=== PATIENT | male | born 1975 | race Caucasian/White ===

== ENCOUNTER 2016-07-25 21:32 | Observation (INO) | payer OTHER ==
[~2016-07-25] VITALS: Ht 177.8 cm; Wt 76.6 kg
--- NOTE | 2016-07-25 21:53 | EMERGENCY ROOM VISIT NOTE ---
History Report prepared by Nohemi: Mitchel Robbins Under the Supervision of: Dr. Olivia Hanna D.O. First contact with patient: 21:42 Chief Complaint: ALCOHOL OVERDOSE Stated Complaint: ETOH Nursing Triage Summary: arrived via amb with als. pt was home d drining and prior to that had been drinking at his residence. History of Present Illness This HPI is limited due to the alcohol intoxication of the patient. The patient is a 41 year old male who presents to the Emergency Room via EMS for alcohol intoxication. Per Hospital Nursing Staff the patient was drinking at [employer]. The accounts receivable manager tried to take him home but the patient was not able to tell him where he lived. The accounts receivable manager then took the patient back to the [employer] and called for an ambulance. According to EMS, The patient commonly drinks grain alcohol. Source of History: nursing staff History Limited By: intoxication (EtOH) Review of Systems HPI is limited due to the Alcohol Intoxication of the patient. Past Medical & Surgical Medical Problems: (1) Alcohol intoxication Unable to acquire due to intoxication. Family History Unable to acquire due to intoxication. Social History Smoking Status: Never Smoker Alcohol Use: heavy Housing Status: lives with family Occupation Status: unemployed Current/Historical Medications Unable to Obtain Active Prescriptions or Reported Meds Allergies Coded Allergies: No Known Allergies (Unverified , 07/25/16) Physical Exam Vital Signs Date Time Temp Pulse Resp B/P Pulse Ox O2 Delivery O2 Flow Rate FiO2 07/25/16 23:41 86 18 109/52 96 Room Air 07/25/16 21:41 36.6 93 18 113/82 98 Room Air 07/25/16 21:41 98 Room Air Physical Exam General: Patient smells of grain alcohol on exam. Unable to answer questions. HEENT: Head - normocephalic and atraumatic Pupils are equal, round, and reactive to light. Pupils measured 2 mm bilaterally. Extraocular eye muscles are intact, and sclera are anicteric. Nose - moist nasal mucosa without discharge. Mouth - moist buccal mucosa. Oropharynx is nonerythematous and there is no tonsillar exudate or edema noted. Neck: Supple; no JVD, nuchal rigidity, cervical lymphadenopathy. Heart: Regular rate and rhythm. There is a normal S1 and S2 with no murmurs, clicks, or gallops appreciated. Lungs: Clear to auscultation bilaterally with no wheezes, rales, or rhonchi. Abdomen: Soft, completely nontender, nondistended, with good bowel sounds. There are no palpable pulsatile masses or hepatosplenomegaly. There is no guarding, rigidity, or rebound noted. Extremities: No evidence of cyanosis, clubbing, or edema. There are easily palpable peripheral pulses. Skin: warm and dry with good turgor and no rashes. Medical Decision & Procedures Laboratory Results 07/25/16 22:15 07/25/16 22:15 Test 07/25/16 22:15 Red Blood Count 4.89 M/uL (4.7-6.1) Mean Corpuscular Volume 98.6 fL (80-100) Mean Corpuscular Hemoglobin 34.6 pg (25-34) Mean Corpuscular Hemoglobin Concent 35.1 g/dl (32-36) RDW Standard Deviation 46.1 fL (36.4-46.3) RDW Coefficient of Variation 12.7 % (11.5-14.5) Mean Platelet Volume 9.1 fL (7.4-10.4) Anion Gap 16.0 mmol/L (3-11) Est Creatinine Clear Calc Drug Dose 105.6 ml/min Estimated GFR () 107.1 Estimated GFR (Non- 92.4 BUN/Creatinine Ratio 6.6 (10-20) Calcium Level 8.3 mg/dl (8.5-10.1) Total Bilirubin 0.2 mg/dl (0.2-1) Direct Bilirubin 0.1 mg/dl (0-0.2) Aspartate Amino Transf (AST/SGOT) 44 U/L (15-37) Alanine Aminotransferase (ALT/SGPT) 55 U/L (12-78) Alkaline Phosphatase 111 U/L (45-117) Total Protein 7.8 gm/dl (6.4-8.2) Albumin 4.0 gm/dl (3.4-5.0) Lipase 466 U/L (73-393) Ethyl Alcohol mg/dL 486.0 mg/dl (0-3) Laboratory results per my review. Medications Administered Medications (Trade) Dose Ordered Sig/Payam Route Start Time Stop Time Status Last Admin Dose Admin Multivitamins/ Thiamine HCl/ Folic Acid/Sodium Chloride (Mvi Infusion Inj/Vitamin B-1 Inj/Folvite Inj/ Nss 1000ml) 1,011.2 ml @ 250 mls/ hr Q4H3M STAT IV 07/25/16 23:39 07/26/16 03:41 DC 07/26/16 00:09 250 MLS/HR Procedure Multivitamins 10 ml/Thiamine HCl 100 mg/ Folic Acid 1 mg/Sodium Chloride 1011.2 ml @ 250 mls/hr IV Multivitamins 10 ml/Thiamine HCl 100 mg/ Folic Acid 1 mg/Sodium Chloride 1011.2 ml @ 150 mls/hr IV Multivitamins 10 ml/Thiamine HCl 100 mg/ Folic Acid 1 mg/Sodium Chloride 1011.2 ml @ 150 mls/hr IV ED Course 2145: Past medical records reviewed. The patient was evaluated in room C9. A complete history and physical exam was performed. Laboratory studies were drawn as above. The patient was observing the threat monitoring analyst and pulse oximeter. 2241: I reevaluated the patient at this time, he is sound asleep. 2339: Multivitamins 10 ml/Thiamine HCl 100 mg/ Folic Acid 1 mg/Sodium Chloride 1011.2 ml @ 250 mls/hr IV 2343: Upon reevaluation, the patient is still asleep. I spoke with Dr. Aponte of the [facility] [place] Hospitalist Service. The patient will be evaluated for further management and care. The patient was reevaluated again and was currently sleeping and hemodynamically stable. Medical Decision This patient is a 41 year old male who presents to the emergency department due to alcohol intoxication. Differential diagnosis include: Hypoglycemia, alcohol intoxication, drug overdose, and head injury. Laboratory Results were reviewed and show: WBC count 6.3, stable H&H, potassium 3.2, normal renal function, glucose 117, AST 44, lipase 466, alcohol 486. The patient presents to the emergency department in an intoxicated state. I was unable to obtain any significant history from the patient. The staff at the restaurant described the patient as frequently drinking alcohol. Patient's blood alcohol level was 486. He remained hemodynamically stable while here in the emergency department. The patient does have a mildly elevated lipase. He was unable to tell me if he had abdominal pain or not. I discussed the case with the [facility] hospitalist and they will evaluate for further management. Consults Time Called: [phone] Consulting Physician: Dr. Aponte - [facility] [place] Returned Call: [phone] He will evaluating the patient further. Impression Primary Impression: Alcohol overdose Scribe Attestation The scribe's documentation has been prepared under my direction and personally reviewed by me in its entirety. I confirm that the note above accurately reflects all work, treatment, procedures, and medical decision making performed by me. Departure Information Dispostion Being Evaluated By Hospitalist Prescriptions Unable to Obtain Active Prescriptions or Reported Meds Patient Instructions My [facility]
[2016-07-25 23:01] LABS: HEMATOCRIT 48.2 % (42-52); MEAN CELL VOLUME 98.6 fL (80-100); MEAN CORPUSCULAR HEMOGLOBIN 34.6 pg (25-34); MEAN CORPUSCULAR HGB CONC 35.1 g/dl (32-36); MEAN PLATELET VOLUME 9.1 fL (7.4-10.4); PLATELET COUNT 246 K/uL (130-400); RED BLOOD COUNT 4.89 M/uL (4.7-6.1)
[2016-07-25 23:03] LABS: BUN/CREATININE RATIO 6.6 (10-20); CALCIUM 8.3 mg/dl (8.5-10.1); POTASSIUM 3.2 mmol/L (3.5-5.1)
[2016-07-25] MEDS ORDERED: MULTI-VITAMIN INFUSION INJ 10 ML, THIAMINE HCL INJ 100 MG, FoLIC ACID INJ 1 MG in SODIU... IV STA (23:39)
[2016-07-26] VITALS (7 sets, daily range): BP systolic 104–120; BP diastolic 63–89; PULSE 69–95; TEMP 36.5–36.7; O2SAT 94–100; Ht 177.8 cm; Wt 76.6 kg
[2016-07-26] MEDS ORDERED: ACETAMINOPHEN 325 MG TAB PO PRN
[2016-07-26] MEDS ORDERED: LORAZEPAM 2 MG/ML 1 ML VIAL IV PRN ×2
[2016-07-26] MEDS ORDERED: MULTI-VITAMIN INFUSION INJ 10 ML, THIAMINE HCL INJ 100 MG, FoLIC ACID INJ 1 MG in SODIU... IV ONE ×4
[2016-07-26] MEDS ORDERED: ONDANSETRON INJ 2 MG/ML 2 ML VIAL IV PRN
[2016-07-26] MEDS ORDERED: ALUMINUM/MAGNESIUM/SIMETH (MAALOX MAX) 30 ML UDC PO PRN
[2016-07-26] MEDS ORDERED: MAGNESIUM HYDROXIDE SUSP 30 ML UDC PO PRN
[2016-07-26] MEDS ORDERED: POLYETHYLENE (MIRALAX) 17 GM PACK PO PRN
--- NOTE | 2016-07-26 00:19 | History and Physical ---
History & Physical Date & Time of Service: Jul 26, 2016 at 00:08 Chief Complaint: ETOH Primary Care Physician: No Doctor, Assigned History of Present Illness Source: patient 41 y/o M with a history of ETOH abuse. Pt was picked up by EMS at a bar where he was drinking all day and was too intoxicated to ambulate. He did not apparently know where he lives so that he was brought to the ER as opposed to being taken home. We adrian requested to admit this individual for alcohol intoxication and a level of 482. He cannot currently provide any comprehensive information but does state that he drinks quite a bit regularly. He is somnolent but denies any specific symptoms. Past Medical/Surgical History Denies any medical history aside from ETOH abuse Family History States that both parents are alive - no known med history He is a men's swim coach Social History Smoking Status: Never Smoker Smokeless Tobacco Use: Yes (Chews tobacco) Occupational Status: unemployed Allergies Coded Allergies: No Known Allergies (Unverified , 07/25/16) Home Medications Unable to Obtain Active Prescriptions or Reported Meds Review of Systems could not reliably obtain - denies any symptoms but is somnolent and slow to answer questions Physical Exam Vital Signs Date Time Temp Pulse Resp B/P Pulse Ox O2 Delivery O2 Flow Rate FiO2 07/26/16 00:05 87 07/25/16 23:41 86 18 109/52 96 Room Air 07/25/16 21:41 36.6 93 18 113/82 98 Room Air 07/25/16 21:41 98 Room Air General Appearance: WD/WN, no apparent distress Head: normocephalic, atraumatic Eyes: normal inspection, PERRL, EOMI ENT: normal ENT inspection, hearing grossly normal, pharynx normal Neck: supple, no JVD Respiratory/Chest: chest non-tender, lungs clear, normal breath sounds, no respiratory distress, no accessory muscle use Cardiovascular: regular rate, rhythm, no edema, no gallop, no JVD, no murmur, normal peripheral pulses Abdomen/GI: normal bowel sounds, non tender, soft Back: normal inspection Extremities/Musculoskelatal: normal inspection, no calf tenderness, normal capillary refill, no pedal edema, normal range of motion Neurologic/Psych: + pertinent finding (Pt is somnolent and fails to comply with a neuro exam - there are no unilateral findings or focal defecits noted) Skin: normal color, warm/dry, no rash Diagnostics Laboratory Results Results Past 24 Hours Test 07/25/16 22:15 Range/Units White Blood Count 6.30 4.8-10.8 K/uL Red Blood Count 4.89 4.7-6.1 M/uL Hemoglobin 16.9 14.0-18.0 g/dL Hematocrit 48.2 42-52 % Mean Corpuscular Volume 98.6 80-100 fL Mean Corpuscular Hemoglobin 34.6 25-34 pg Mean Corpuscular Hemoglobin Concent 35.1 32-36 g/dl RDW Standard Deviation 46.1 36.4-46.3 fL RDW Coefficient of Variation 12.7 11.5-14.5 % Platelet Count 246 130-400 K/uL Mean Platelet Volume 9.1 7.4-10.4 fL Sodium Level 145 136-145 mmol/L Potassium Level 3.2 3.5-5.1 mmol/L Chloride Level 108 98-107 mmol/L Carbon Dioxide Level 21 21-32 mmol/L Anion Gap 16.0 3-11 mmol/L Blood Urea Nitrogen 7 7-18 mg/dl Creatinine 1.00 0.60-1.40 mg/dl Est Creatinine Clear Calc Drug Dose 105.6 ml/min Estimated GFR () 107.1 Estimated GFR (Non- 92.4 BUN/Creatinine Ratio 6.6 10-20 Random Glucose 117 70-99 mg/dl Calcium Level 8.3 8.5-10.1 mg/dl Total Bilirubin 0.2 0.2-1 mg/dl Direct Bilirubin 0.1 0-0.2 mg/dl Aspartate Amino Transf (AST/SGOT) 44 15-37 U/L Alanine Aminotransferase (ALT/SGPT) 55 12-78 U/L Alkaline Phosphatase 111 45-117 U/L Total Protein 7.8 6.4-8.2 gm/dl Albumin 4.0 3.4-5.0 gm/dl Lipase 466 73-393 U/L Ethyl Alcohol mg/dL 486.0 0-3 mg/dl Impression Assessment and Plan 1 y/o M with a history of ETOH abuse. Pt was picked up by EMS at a bar where he was drinking all day and was too intoxicated to ambulate. He did not apparently know where he lives so that he was brought to the ER as opposed to being taken home. We adrian requested to admit this individual for alcohol intoxication and a level of 482. 1) ETOH intoxication - Pt has been placed on observation in the telemetry unit with a CINE protocol - we will provide a daily banana bag and PRN Ativan for withdrawal presently. Aggressive IVF will be provided 2) Hypokalemia noted on labs - replced and MG provided 3) LFTs and lipase mildly elevated - denies N/V or abdominal pain - repeat AM SCDs - full code Total time fro this admit including review of labs, available records, discussion with ER MD and pt 29 min Level of Care Telemetry VTE Prophylaxis VTE Risk Assessment Done? Y/N: Yes Risk Level: Low Given or contraindicated: SCD's
[2016-07-26] MEDS ORDERED: IV FLUIDS COMPLETED PRN (01:30)
[2016-07-26] MEDS ORDERED: LORAZEPAM INJ 1 MG in SYRINGE 0.5 ML IV PRN (02:00)
[2016-07-26] MEDS ORDERED: MAGNESIUM SULFATE 1GM / D5W 1 GM in PREMIXED IN D5W 100 ML IV ONE (02:00)
[2016-07-26] MEDS ORDERED: D5NSS + 20MEQ KCL 1,000 ML IV SCH (02:00)
[2016-07-26] MEDS ORDERED: LORAZEPAM INJ 2 MG in SYRINGE 1 ML IV PRN (02:15)
[2016-07-26] MEDS: POTASSIUM CHLR 10 MEQ / WTR 10 MEQ in PREMIXED WATER 100 ML IV SCH ×2 (02:37→03:59)
[2016-07-26 06:07] LABS: ALKALINE PHOSPHATASE 96 U/L (45-117); ALT/SGPT 50 U/L (12-78); AST/SGOT 40 U/L (15-37)
[2016-07-26 06:11] LABS: BUN/CREATININE RATIO 5.3 (10-20); CALCIUM 7.4 mg/dl (8.5-10.1); CREATININE 1.1 mg/dl (0.60-1.40); MAGNESIUM 2.5 mg/dl (1.8-2.4); POTASSIUM 4.1 mmol/L (3.5-5.1)
[2016-07-26] MEDS ORDERED: MULTI-VITAMIN INFUSION INJ 10 ML, THIAMINE HCL INJ 100 MG, FoLIC ACID INJ 1 MG in SODIU... IV SCH (11:00)
[2016-07-26] MEDS ORDERED: FLV1 PO (14:02)
[2016-07-26] MEDS ORDERED: MULTTAB58 PO (14:02)
[2016-07-26] MEDS ORDERED: THIA1TAB PO (14:02)
--- NOTE | 2016-07-26 14:43 | Discharge Instructions ---
Discharge Instructions Admission Reason for Admission: Alcohol Intoxication (Nela Enrique PA-C) Discharge Discharge Diagnosis / Problem: Alcohol intoxication (Nela Enrique PA-C) Discharge Goals Goal(s): Decrease discomfort, Improve function, Improve nutritional status, Diagnostic testing, Therapeutic intervention (Nela Enrique PA-C) Activity Recommendations Activity Limitations: resume your previous activity . (Nela Enrique PA-C) Instructions / Follow-Up Instructions / Follow-Up You were admitted with alcohol intoxication and difficulty ambulating. Upon arrival, your blood alcohol level was 486, which can be a fatal level. You were also found to have an elevated lipase, which is an enzyme that is produced by your pancreas. Due to your drinking history, an elevated lipase is concerning for pancreatitis, or inflammation of the pancreas, however since you did not develop any symptoms consistent with pancreatitis, no further work up was needed. You were hydrated with aggressive IV fluids, electrolytes and vitamins and are now medically stable for discharge home. You are strongly encouraged to stop drinking, as prolonged heavy drinking leads to several severe adverse health effects, such as liver failure, memory loss/ cognitive deficits, seizures, depression, increased risk of cardiovascular disease, and increased risk of cancer. You are also strongly encouraged to pursue rehabilitation or detox programs to address your drinking, which you refused while here in the hospital. Please DO NOT DRINK AND DRIVE as you are not only putting yourself but others at risk. Prescriptions for multivitamins, folic acid, and thiamine have been printed out for you to take to your preferred pharmacy. Please take these medications as directed as heavy drinking will cause you to lose these vitamins. Please also reconsider establishing care with a primary care provider and following up routinely with someone. You were given one dose of pantoprazole (Protonix) 40 mg prior to discharge for your likely gastritis (inflammation of the stomach) secondary to the alcohol. You can buy medications of the same drug class such as omeprazole (Prilosec) or esomeprazole (Nexium) over the counter. Please take daily for the next 2 weeks to help protect your stomach lining. Please seek medical attention if you experience fevers, chills, sweats, lightheadedness, loss of consciousness, seizures, chest pain, shortness of breath, nausea, vomiting, abdominal pain, numbness or tingling. (EnriqueNela PA-C) Current Hospital Diet Patient's current hospital diet: Regular Diet (Nela Enrique PA-C) Discharge Diet Recommended Diet: Regular Diet (Nela Enrique PA-C) Pending Studies Studies pending at discharge: no (Nela Enrique PA-C) Medical Emergencies . Who to Call and When: Medical Emergencies: If at any time you feel your situation is an emergency, please call 911 immediately. . (Nela Enrique PA-C) Non-Emergent Contact Non-Emergency issues call your: Primary Care Provider Call Non-Emergent contact if: you have any medication questions . (Nela Enrique PA-C) Past History Medical & Surgical History: (1) Alcohol intoxication (Nela Enrique PA-C) . "Provider Documentation" section prepared by Nela Enrique. (Nela Enrique PA-C) Attending Attestation: Pt seen/examined on day of discharge with ASHISH Sawant; I agree with her discharge instructions as outlined. Jose Mitchell MD (Jose Mitchell MD) VTE Core Measure Inpt VTE Proph given/why not?: SCD's (Nela Enrique PA-C)
[2016-07-26] MEDS ORDERED: PANTOprazole SOD 40 MG TAB PO ONE (15:00)
--- NOTE | 2016-07-26 15:01 | Discharge Summary ---
Discharge Summary Admission Date: Jul 26, 2016 at 00:02 Discharge Date: Jul 26, 2016 Discharge Disposition: Home Principal Diagnosis: Alcohol intoxication (Nela Enrique PA-C) Problems/Secondary Diagnoses: hypokalemia - resolved transaminitis - likely due to alcohol - needs repeat as outpatient (Jose Mitchell MD) Medication Reconciliation New Medications: Folic Acid (Folic Acid) 1 Mg Tab 1 MG PO DAILY for 30 Days, #30 TABS Multiple Vitamin (Multivitamin) 1 Tab Tab 1 TAB PO DAILY for 30 Days, #30 TAB 5 Refills Thiamine Hcl (B-1) 100 Mg Tab 200 MG PO DAILY for 30 Days, #60 TABS Discharge Exam Patient is alert and oriented. Denies any complaints. Refuses any director of social work, refuses to establish care with a PCP for follow up. Review of Systems: Constitutional: No chills, No fever, No sweats Eyes: No diplopia, No eye pain, No worsening of vision ENT: No hearing loss, No sore throat, No trouble swallowing Respiratory: No cough, No shortness of breath, No wheezing Cardiovascular: No chest pain, No claudication, No palpitations Abdomen: No nausea, No pain, No vomiting Musculoskeletal: No calf pain, No joint pain, No muscle pain Genitourinary - Male: No dysuria, No hematuria, No urinary retention Neurologic: No numbness/tingling, No paralysis, No weakness Integumentary: No color change, No itch, No rash Physical Exam: General Appearance: WD/WN, no apparent distress Eyes: normal inspection, PERRL, EOMI ENT: normal ENT inspection, hearing grossly normal, pharynx normal Neck: supple, no JVD, trachea midline Respiratory/Chest: lungs clear, normal breath sounds, no respiratory distress Cardiovascular: regular rate, rhythm, no gallop, no murmur Abdomen / GI: normal bowel sounds, non tender, soft Extremities: normal inspection, no calf tenderness, no pedal edema Neurologic/Psychiatric: alert, normal mood/affect, oriented x 3 Skin: normal color, warm/dry, no rash (Nela Enrique PA-C) Hospital Course 41 y/o male with a history of ETOH abuse. Pt was picked up by EMS at a bar where he was drinking all day and was too intoxicated to ambulate. He did not apparently know where he lives so he was brought to the ER as opposed to being taken home. Medicine requested to admit this individual for alcohol intoxication and a level of 486. Once pt was more alert he stated that he drinks about 3x/week. On those days, he typically drinks 1-2 beers and 3-4 shots of liquor in one sitting. He does not follow with a PCP and denies any other problems, no home medications. ETOH intoxication--BAL 486 but pt was still walking/talking, this indicates very heavy alcohol use -Admitted to telemetry for overnight observation -CIWA protocol -Banana bag x 1 -Aggressive IVF D5 NSS + 20 mEq KCl at 150 cc/hr x 1 bag -Mg sulfate 1 gm IV x 1 -Ativan PRN for withdrawal--pt did not need -Lipase elevated at arrival at 466, continued to elevate to 770 on 07/26. Pt asymptomatic, no need for further evaluation -Possible gastritis secondary to ETOH: received 1 dose Protonix 40 mg PO while inpt, instructed to continue with OTC Prilosec or Nexium for the next 2 weeks Hypokalemia--resolved -K+ 3.2 upon arrival -Potassium chloride 10 mEq IV x 2 -K+ 4.1 prior to discharge DVT prophylaxis -SCDs Code Status -Level I, FULL RESUSCITATION STATUS Dispo -Spoke to patient about heavy drinking. He refuses any rehab, detox or director of social work. Encouraged him to stop drinking and to never drink and drive. Refused to establish care with PCP for follow up. -Discharged with MVI, folic acid 1 mg PO qd x 30 days, thiamine 200 mg PO qd x 30 days -Pt ambulated in hallway and drank fluids without any issue, medically stable for discharge Total Time Spent: Greater than 30 minutes This includes examination of the patient, discharge planning, medication reconciliation, and communication with other providers. (Nela Enrique ., PAGrecthenC) Attending Attestation: Pt seen/examined and care plan d/w ASHISH Enrique on the day of discharge. I agree with the bower components of her discharge summary as outlined. 41yo male with chronic alcohol abuse who presented with acute alcohol intoxication. Received supportive care including IVF, banana bag, and serial labs. Had evidence of mild transaminitis likely due to acute alcohol binge. Lipase was mildly elevated but he did not meet serological criteria for acute pancreatitis nor did he have any symptoms of pancreatitis. On day of discharge the patient was awake, alert, oriented and w/o signs of ongoing intoxication or withdrawal. He refused any aftercare treatment such as referral for counseling, Alcoholics Anonymous, or PCP establishment. He was advised to abstain 100% from alcohol and warned of the dangers of ongoing alcohol abuse. He voiced understanding of these recommendations. Discharge exam: gen - NAD eyes - no icterus, no nystagmus mouth - MMM heart - RRR, s1, s2 lungs - CTA b/l abd - soft, NT, liver edge about 1-2cm below costal margin, spleen not enlarged , BS+, no peritoneal signs ext - no edema, pulses 2+ b/l Prior to discharge the patient was voiding, drinking some fluids, and ambulating without ataxia. Jose Mitchell MD (Jose Mitchell MD) Discharge Instructions Please refer to the electronic Patient Visit Report (Discharge Instructions) for additional information. (Nela Enrique ., PA-C)
== END 2016-07-26 15:58 | disposition home or self-care (01) ==
LOC: ENRESERVDT → ENRESERVTM → EDBD 21:32 → C.EDC 21:40 → C.2T 07-26 00:02
PROVIDERS: ADMIT Internal Medicine; ATTEND Internal Medicine
DX: F10.120 Alcohol abuse with intoxication, uncomplicated (principal); E87.6 Hypokalemia; F17.220 Nicotine dependence, chewing tobacco, uncomplicated

== ENCOUNTER → 2017-01-10 | Outpatient (CLI) | payer OTHER ==
[~2017-01-10] MED LIST: FLV1 PO; MULTTAB58 PO; THIA1TAB PO
== END | disposition home or self-care (01) ==
LOC: C.LAB 01:22
DX: Z02.83 Encounter for blood-alcohol and blood-drug test (principal)